=== PATIENT | male | born 1995 | race Caucasian/White ===

== ENCOUNTER 2019-06-10 09:12 | Emergency (ER) | payer MEDICAID ==
[2019-06-10 09:27] VITALS: BP 128/77
[2019-06-10] MEDS ORDERED: TETANUS/DIPHTHERIA/PERTUSSIS 0.5 ML SYRINGE IM ONE (09:53)
[2019-06-10] MEDS ORDERED: LIDOCAINE 1%-EPI 1:100000 20 ML MDV SUBQ STA (09:53)
--- NOTE | 2019-06-10 09:58 | ED Physician Documentation ---
PD HPI ANIMAL BITE - Stated complaint Stated Complaint: R HAND DOG BITE - Chief complaint Chief Complaint: Wound - Additional information Additional information: This is a 23-year-old zfrgy-lzie-mwttebex male who presents with a dog bite to h is right hand. He is home for the holidays and he brought his dog and his dog began fighting with his mother's dog, he tried to break up the fight and had his hand bit in the process. He did not get injured anywhere else. The dogs are both domestic and up-to-date with shots. This happen just prior to arrival. He denies any weakness or numbness or tingling Review of Systems Skin: reports: Laceration (s) Musculoskeletal: reports: Extremity pain PD PAST MEDICAL HISTORY - Past Medical History Past Medical History: No - Present Medications Home Medications: Ambulatory Orders Medication Instructions Recorded Confirmed Amox/Clav 875/125 [Augmentin] 1 each PO Q12H #14 tablet 06/10/19 - Allergies Allergies/Adverse Reactions: Allergies Allergy/AdvReac Type Severity Reaction Status Date / Time Sulfa (Sulfonamide Allergy Unknown Verified 06/10/19 09:27 Antibiotics) - Social History Does the pt smoke?: No Smoking Status: Never smoker PD ED PE NORMAL - General General: Alert and oriented X 3 - HEENT HEENT: Atraumatic - Cardiac Cardiac: Strong equal pulses - Respiratory Respiratory: No respiratory distress - Abdomen Abdomen: Non distended - Extremities Extremities: Other (Right hand has several abrasions and 3 lacerations, 1 over the dorsal inter-webspace, 1 over the dorsal mid hand, and one over the dorsal fourth MCP joint. All these extend to the subcutaneous tissue the laceration over the dorsal and webspace extends down to the level of the muscle with no obvious muscle disruption. There is no visible tendon, no foreign body, no tendon laceration. He is able to extend all of his fingers against resistance, is also able to flex against resistance without issue. Digits were tested at the MCP PIP and DIP joint and strength was intact. Sensation intact over all fingers, capillary refill is brisk.) - Neuro Neuro: Alert and oriented X 3 Results - Vitals Vitals: Vital Signs - 24 hr 06/10/19 09:24 Temperature 36.9 C Heart Rate 99 Respiratory 16 Rate Blood Pressure 128/77 O2 Saturation 100 Oxygen O2 Source Room air - Rads (name of study) XR hand Radiology: Other (No acute osseous abnormality, no radiopaque foreign body) Procedures - Laceration (location) hand Length in cm: 4 Wound type: Linear Anesthesia: Lidocaine 1% with epi Wound Preparation: Irrigated copiously NS Skin layer closure: Nylon, Interrupted, Size #-0 - enter number (5), Sutures - enter # (6) Other: Patient tolerated well, No complications, Neurovascular intact, Dressing applied, Tetanus booster given Complexity: Simple PD MEDICAL DECISION MAKING - ED course ED course: Patient presents with dog bite to his hand. He has several lacerations, but no signs of damage to the underlying tendons, vessels, or nerves. He is neurovascularly intact. He does have Tenderness just underneath the bite locations, an x-ray was obtained showing no fracture. The wounds were cleaned thoroughly with copious irrigation. I discussed with the patient the options of healing by secondary intent which may reduce the risk of infection, or primary closure which will Likely help speed healing, but may increase the risk of infection. Patient agrees with the plan for primary closure, which I agree with. The wounds were approximated well using sutures, and patient was started immediately on Augmentin, first dose given here. Wound care and return precautions were discussed with the patient, with an emphasis on signs of infection. Patient agrees with this plan and was discharged home Departure - Departure Disposition: 01 Home, Self Care Clinical Impression: Dog bite Qualifiers: Encounter type: initial encounter Qualified Code(s): W54.0XXA - Bitten by dog, initial encounter Condition: Good Instructions: ED Bite Animal General Follow-Up: Your,PCP [Other] (In 10 days for suture removal) Prescriptions: Amox/Clav 875/125 [Augmentin] 1 each PO Q12H #14 tablet Comments: Your stitches should be checked for removal in 10 days. You may run water over the wound and clean with mild soap and water, but do not scrub at the wounds. Keep an eye out for signs of infection such as increasing redness, pus draining from the wounds, redness streaking up the hand. If you see any of these sym ptoms return to the emergency department immediately. Take the antibiotic as prescribed, if your wounds are healing well with no signs of infection you may stop the medicine after 5 days. Discharge Date/Time: 06/10/19 11:37
--- NOTE | 2019-06-10 11:15 | XRAY Report ---
Reason: Dog bite to hand Procedure Date: 06/10/2019 Accession Number: [id number] / [id number] Procedure: XR - Hand 3 View RT CPT Code: Final Report FULL RESULT: EXAM: RIGHT HAND RADIOGRAPHY EXAM DATE: 06/10/2019 10:51 AM. CLINICAL HISTORY: Dog bite to hand. COMPARISON: None. TECHNIQUE: 3 views. FINDINGS: Bones: Normal. No fractures or bone lesions. Joints: Normal. No subluxations. Soft Tissues: Normal. No soft tissue swelling. IMPRESSION: Normal hand radiography. RADIA
[2019-06-10] MEDS ORDERED: AMOX/CLAV 875 MG/125 MG TABLET PO STA ×2 (11:19)
== END 2019-06-10 11:37 | disposition home or self-care (01) ==
LOC: ED 09:12
DX: S61.451A Open bite of right hand, initial encounter (principal); W54.0XXA Bitten by dog, initial encounter; Y93.K9 Activity, other involving animal care
CPT/HCPCS: 12002; 73130; 90471; 90715; 99283; A9270

== ENCOUNTER 2020-02-21 10:49 | Outpatient (CLI) | payer MEDICAID | END 2020-02-21 10:50 | disposition critical access hospital (66) | LOC: EMS 10:49 | PROVIDERS: ATTEND Surgery | DX: R56.9 Unspecified convulsions (principal) | CPT/HCPCS: A0425; A0427; A0999 ==

== ENCOUNTER 2020-02-21 11:01 | Observation (INO) | payer MEDICAID ==
[2020-02-21] MEDS ORDERED: SODIUM CHLORIDE 0.9% 1,000 ML IV STA (11:05)
--- NOTE | 2020-02-21 11:48 | CT Report ---
PROCEDURE: HEAD WO INDICATIONS: new-onset sz TECHNIQUE: Noncontrast 4.5 mm thick angled axial sections acquired from the foramen magnum to the vertex. For r adiation dose reduction, the following was used: automated exposure control, adjustment of mA and/or kV according to patient size. COMPARISON: None. FINDINGS: Image quality: On repeat imaging, the images are diagnostic. There is streak artifact from the patien t's metallic lobe plugs. CSF spaces: Basal cisterns are patent. No extra-axial fluid collections. Ventricles are normal in size and shape. Brain: No midline shift. No intracranial masses or hemorrhage. Norman-white matter interface is norm al. Skull and face: Calvarium and visualized facial bones are intact, without suspicious lesions. Sinuses: Visualized sinuses and mastoids are clear. IMPRESSION: Limited intracranial study, without a cause of seizures identified. If it would be helpful for clinical management decision making, please consider a dedicated seizure p rotocol brain MRI (without and with contrast) for further evaluation (assuming that there is no contr aindication). Reviewed by: Piter Harding MD on 02/21/2020 10:47 AM JOHN PAUL Approved by: Piter Harding MD on 02/21/2020 10:47 AM JOHN PAUL Station ID: [id number]
[2020-02-21 12:35] LABS: BASOPHILS # (AUTO) 0.1 10^3/uL (0.0-0.1); BASOPHILS % (AUTO) 0.4 %; EOSINOPHILS % (AUTO) 0.3 %; HGB - HEMOGLOBIN 15.4 g/dL (14.0-18.0); LYMPHOCYTES # (AUTO) 1.3 10^3/uL (1.5-3.5); LYMPHOCYTES % (AUTO) 9.5 %; MEAN CORPUSCULAR HEMOGLOBIN 28.5 pg (27.0-31.0); MEAN CORPUSCULAR VOLUME 88.9 fL (80.0-94.0); MONOCYTES % (AUTO) 7.1 %; NEUTROPHILS # (AUTO) 11.1 10^3/uL (1.5-6.6); NEUTROPHILS % (AUTO) 82.2 %; PLT - PLATELET COUNT 164 10^3/uL (130-450); RED BLOOD COUNT 5.41 10^6/uL (4.70-6.10); RED CELL DISTRIBUTION WIDTH 12.3 % (12.0-15.0); WHITE BLOOD COUNT 13.5 x10^3/uL (4.8-10.8)
[2020-02-21 12:46] LABS: ALBUMIN 4.7 g/dL (3.2-5.5); ALBUMIN/GLOBULIN RATIO 1.6 (1.0-2.2); ALKALINE PHOSPHATASE 51 IU/L (42-121); ALT ALANINE AMINOTRANSFERASE 12 IU/L (10-60); AST ASPARTATE AMINOTRANSFERASE 17 IU/L (10-42); BILIRUBIN,TOTAL 0.7 mg/dL (0.2-1.0); BUN - BLOOD UREA NITROGEN 12 mg/dL (6-20); CALCIUM 8.6 mg/dL (8.5-10.3); CARBON DIOXIDE - CO2 29 mmol/L (21-32); CHLORIDE 102 mmol/L (101-111); CREATININE 0.9 mg/dL (0.6-1.2); GLUCOSE 121 mg/dL (70-100); LIPASE 120 U/L (22-51); SODIUM 138 mmol/L (135-145); TOTAL PROTEIN 7.7 g/dL (6.7-8.2)
[2020-02-21 13:13] LABS: MUDS CUTOFF CONCENTRATIONS CUTOFF CONC BELOW:
[2020-02-21 13:25] LABS: AMPHETAMINE SCREEN,URINE NEGATIVE (NEGATIVE); BENZODIAZEPINES SCREEN, URINE NEGATIVE (NEGATIVE); COCAINE SCREEN URINE NEGATIVE (NEGATIVE); METHADONE SCREEN, URINE NEGATIVE (NEGATIVE); METHAMPHETAMINES SCREEN, URINE NEGATIVE (NEGATIVE); OPIATE SCREEN, URINE NEGATIVE (NEGATIVE); OXYCODONE SCREEN, URINE NEGATIVE (NEGATIVE); PROPOXYPHENE SCREEN, URINE NEGATIVE (NEGATIVE); TRICYCLIC ANTIDEPRESSANT,URINE NEGATIVE (NEGATIVE)
[2020-02-21] MEDS ORDERED: LORazepam 2 MG/ML VIAL IVP STA (13:28)
[2020-02-21] MEDS ORDERED: levETIRAcetam INJ 500 MG in SODIUM CHLORIDE 0.9% 100ML 100 ML IV STA (15:31)
[2020-02-21] MEDS ORDERED: ONDANSETRON ODT 4 MG TABLET TL PRN (15:50)
[2020-02-21] MEDS ORDERED: SODIUM CHLORIDE FLUSH 0.9% 10 ML SYRINGE IVP PRN (15:50)
[2020-02-21] MEDS ORDERED: ONDANSETRON 4 MG/2 ML VIAL IVP PRN (15:50)
[2020-02-21] MEDS ORDERED: ACETAMINOPHEN 325 MG TABLET PO PRN (15:50)
[2020-02-21] MEDS ORDERED: LORazepam 2 MG/ML VIAL IVP PRN (15:52)
--- NOTE | 2020-02-21 15:57 | ED Physician Documentation ---
History of Present Illness - Stated complaint Stated Complaint: SZ - Chief complaint Chief Complaint: Neuro - History obtained from History obtained from: Family, EMS - Additonal information Additional information: Patient is brought to the emergency department by EMS for chief complaint of new onset seizure. The patient had been standing and walking at home, when mother states that he suddenly seemed to "go into a daze". He stared off and then his face twisted and he began to shake. The family caught him before he fell to the floor. It is unclear exactly how long the seizure activity lasted, but EMS was called. The patient was then very somnolent afterward and has been confused in route, though reasonably cooperative. The patient initially is unable to offer any information. Per EMS, he has a distant history of IV drug abuse, but mom states is been about a year and a half since he last used. He does use marijuana but does not drink any alcohol that mom knows of. Patient has no h istory of seizure disorder. No recent head injuries that she knows of. Patient has not been sick with anything but has been under some stress and sleep deprivation from a new job. Mother does note that the patient's father did have a seizure disorder, but this was after significant head injury. Patient is otherwise healthy. Review of Systems Ten Systems: 10 systems reviewed and negative Constitutional: reports: Reviewed and negative Eyes: reports: Reviewed and negative Ears: reports: Reviewed and negative Nose: reports: Reviewed and negative Throat: reports: Reviewed and negative Cardiac: reports: Reviewed and negative Respiratory: reports: Reviewed and negative GI: reports: Reviewed and negative : reports: Reviewed and negative Skin: reports: Reviewed and negative Musculoskeletal: reports: Reviewed and negative Neurologic: reports: Seizure Psychiatric: reports: Reviewed and negative Endocrine: reports: Reviewed and negative Immunocompromised: reports: Reviewed and negative PD PAST MEDICAL HISTORY - Present Medications Home Medications: Ambulatory Orders Medication Instructions Recorded Confirmed Amox/Clav 875/125 [Augmentin] 1 each PO Q12H #14 tablet 06/10/19 - Allergies Allergies/Adverse Reactions: Allergies Allergy/AdvReac Type Severity Reaction Status Date / Time Sulfa (Sulfonamide Allergy Unknown Verified 02/21/20 16:09 Antibiotics) - Social History Does the pt smoke?: No Smoking Status: Never smoker PD ED PE NORMAL - Vitals Vital signs reviewed: Yes - General General: Other (Patient has arousable but unable to answer questions. He is in no obvious distress, though he is somewhat agitated) - HEENT HEENT: Atraumatic, PERRL, EOMI, Moist mucous membranes - Neck Neck: Supple, no meningeal sign - Cardiac Cardiac: RRR, No murmur, Strong equal pulses - Respiratory Respiratory: No respiratory distress, Clear bilaterally - Abdomen Abdomen: Soft, Non tender, Non distended - Back Back: No CVA TTP - Derm Derm: Normal color, No rash, Other (Warm, slight diaphoresis.) - Extremities Extremities: No deformity, No edema, No calf tenderness / cord - Neuro Neuro: Other (Patient moves all 4 extremities. He has Grossly intact cranial nerves and grossly intact sensation. He is awake and somewhat responsive but not mentally clear and is mildly agitated.) - Psych Psych: Normal mood, Normal affect Results - Vitals Vitals: Vital Signs - 24 hr 02/21/20 02/21/20 02/21/20 11:15 12:05 13:00 Temperature 37.3 C Heart Rate 84 69 79 Respiratory 20 14 14 Rate Blood Pressure 115/55 L 124/63 118/85 H O2 Saturation 97 100 100 02/21/20 02/21/20 02/21/20 13:30 14:00 14:30 Temperature Heart Rate 90 92 87 Respiratory 24 15 15 Rate Blood Pressure 122/51 L 118/52 L 106/40 L O2 Saturation 99 99 94 02/21/20 02/21/20 15:00 15:30 Temperature Heart Rate 89 83 Respiratory 12 14 Rate Blood Pressure 114/63 117/58 L O2 Saturation 97 96 Oxygen O2 Source Nasal cannula - Labs Labs: Laboratory Tests 02/21/20 02/21/20 02/21/20 11:40 11:40 12:45 WBC 13.5 H RBC 5.41 Hgb 15.4 Hct 48.1 MCV 88.9 MCH 28.5 MCHC 32.0 RDW 12.3 Plt Count 164 MPV 11.0 Neut # (Auto) 11.1 H Lymph # (Auto) 1.3 L Marin # (Auto) 1.0 Eos # (Auto) 0.0 Baso # (Auto) 0.1 Absolute Nucleated RBC 0.00 Nucleated RBC % 0.0 Sodium 138 Potassium 4.2 Chloride 102 Carbon Dioxide 29 Anion Gap 7.0 BUN 12 Creatinine 0.9 Estimated GFR (MDRD) 104 Glucose 121 H Calcium 8.6 Total Bilirubin 0.7 AST 17 ALT 12 Alkaline Phosphatase 51 Total Protein 7.7 Albumin 4.7 Globulin 3.0 Albumin/Globulin Ratio 1.6 Lipase 120 H Urine Opiates Screen NEGATIVE Ur Oxycodone Screen NEGATIVE Urine Methadone Screen NEGATIVE Ur Propoxyphene Screen NEGATIVE Ur Barbiturates Screen NEGATIVE Ur Tricyclics Screen NEGATIVE Ur Phencyclidine Scrn NEGATIVE Ur Amphetamine Screen NEGATIVE U Methamphetamines Scrn NEGATIVE U Benzodiazepines Scrn NEGATIVE Urine Cocaine Screen NEGATIVE U Cannabinoids Screen POSITIVE H Ethyl Alcohol < 5.0 - Rads (name of study) CT head Radiology: Final report received, EMP read indepedently, See rad report (neg) PD MEDICAL DECISION MAKING - ED course Complexity details: reviewed old records, reviewed results, re-evaluated patient, considered differential, d/w patient (Patient was worked up with labs, EKG) ED course: The patient was worked up with labs, urine drug screen, and head CT, all of which were unremarkable with the exception of positive marijuana on the drug screen. Patient's alcohol level was negative. The patient actually started to wake up and became coherent, and I thought that he may be able to go home. However, the patient ended up seizing again in the emergency department with a grand mall seizure that lasted about 1 minute. He was given a milligram of Ativan for this. At this point I spoke with Dr. Bowles, who was the neurologist on-call over at [facility]. He recommended starting the patient on Keppra until he can be worked up with MRI and EEG. The patient should have those test within roughly the next week, if at all possible. He recommended observation if the patient was not back to nearly mental baseline in an hour, or if the patient had a third seizure, at which time transfer should be considered. He did recommend that the patient try to find a way to get better sleep and has requested that the patient follow-up with them in the next 1 to 2 weeks at the [facility] neurology clinic. I spoke with Dr. Culp here at our hospital, after finding the pt still significantly post-ictal over an hour later, and he did agree to admit the patient to his service. Departure - Departure Disposition: ED Place in Observation Clinical Impression: New onset seizure, Postictal state Condition: Serious Discharge Date/Time: 02/21/20 16:29
--- NOTE | 2020-02-21 15:57 | HISTORY & PHYSICAL EXAMINATION ---
Chief Complaint - Chief Complaint Chief Complaint: New seizure History of Present Illness - Admitted From Admitted From:: Home - History Obtained From Records Reviewed: Yes History obtained from: Patient, ER Physician, EMR Exam Limitations: History limited from patient due to postictal state/lethargic from Ativan. 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 Most of the history is obtained from the ER physician as history is only from the patient due to his postictal state. The patient reportedly had what appears to be a grand mal seizure at home today. He does not recall this but he does know he is here at the hospital although he is not sure why. Reports no prior history of seizures. He reports no medication use. He admits to daily marijuana use with last use being this morning. He reports no change in the marijuana he normally uses. He denies any alcohol use. He reports a past history of IV heroin use although he has not used for quite a few years now. He reports no family history of seizures although his mother told the ER provider that his father had seizures after traumatic brain injury. While here in the emergency department, the patient had another witnessed grand mal seizure. He was given lorazepam IV and neurology was contacted recommend starting the patient on Keppra given he has had 2 seizures now. The patient underwent a CT of the head which was unremarkable. His labs were significant for a urine toxicology which was positive for marijuana. History - Past Medical History Cardiovascular: reports: None Respiratory: reports: None Neuro: reports: None Endocrine/Autoimmune: reports: None MRSA Hx?: No - Family & Social History Family History Comment/Other: He reports no family history to his knowledge. His Maternal grandfather had a history of seizures after traumatic brain injury. Living arrangement: At home Living Situation: With family Social History Notes: He reports he lives at home with his mother. He has been using marijuana daily for the past few years. He works in construction. Denies any alcohol use. He has a past history of IV heroin use but has not used in a few years. Meds/Allgy - Home Medications Home Medications: Ambulatory Orders Medication Instructions Recorded Confirmed Amox/Clav 875/125 [Augmentin] 1 each PO Q12H #14 tablet 12/25/19 - Allergies Allergies/Adverse Reactions: Allergies Allergy/AdvReac Type Severity Reaction Status Date / Time Sulfa (Sulfonamide Allergy Unknown Verified 02/21/20 16:09 Antibiotics) Review of Systems - Constitutional Constitutional: reports: Fatigue - Cardiovascular Cariovascular: denies: Chest pain - Respiratory Respiratory: denies: SOB at rest, SOB with exertion - Neurological Neurological: reports: Headache, Seizures. denies: General weakness, Focal weakness, Dizziness, Numbness - All Other Systems All Other Systems: reports: Other (Review of systems is limited as the patient is postictal.) Prior Level of Functionality: He is independent with his ADLs. Exam - Vital Signs Reviewed Vital Signs: Yes Vital Signs: Vital Signs x48h Temp Pulse Resp BP Pulse Ox 02/21/20 14:30 87 15 106/40 L 94 02/21/20 14:00 92 15 118/52 L 99 02/21/20 13:30 90 24 122/51 L 99 02/21/20 13:00 79 14 118/85 H 100 02/21/20 12:05 69 14 124/63 100 02/21/20 11:15 37.3 C 84 20 115/55 L 97 - Physical Exam General Appearance: positive: Lethargic, Other (He is lethargic but will wake up when spoken to. He does fall asleep quickly.) Eyes Bilateral: positive: Normal inspection, Other (Pupils are dilated but reactive to light.) ENT: positive: ENT inspection nml Neck: positive: Nml inspection Respiratory: positive: No respiratory distress. negative: Wheezes, Rales Cardiovascular: positive: Regular rate & rhythm, No murmur. negative: Irregularly irregular, Tachycardia, Bradycardia, Systolic murmur Abdomen: positive: Non-tender, No distention. negative: Tenderness Skin: positive: Warm, Dry Extremities: positive: Full ROM, No pedal edema Neurologic/Psychiatric: positive: Motor nml, Other (He is oriented to self and location as well as year and month. No focal deficits on exam. He does have about 3 beats of clonus.). negative: Disoriented to person, Disoriented to place, Disoriented to time Conclusion/Plan - Problem List (1) New onset seizure Conclusion/Plan: Presents with a grand mal seizure at home and another seizure while here in the emergency department. CT of the head was unremarkable. Urine toxicology is positive for marijuana. Alcohol is negative and there is no reported alcohol use. He was given Ativan IV in the emergency department. Currently appears postictal with this may be lethargy secondary to the use of Ativan. He has been started on Keppra as recommended by neurology. We will place in observation for further monitoring. Continue Keppra 500 mg twice daily. Lorazepam IV as needed for seizures. Will obtain MRI of the brain in the morning. Seizure precautions. If no further seizures then we will discharge him tomorrow on Keppra with neurology follow-up for outpatient EEG. (2) Marijuana use Conclusion/Plan: His urine toxicology is positive for marijuana. This may potentially lower the seizure threshold. Will discuss with patient regarding the importance of marijuana cessation once he is more alert. - Lab Results Lab results reviewed: Yes Fish Bones: 02/21/20 11:40 02/21/20 11:40 - Diagnostic Imaging Results Diagnostic Imaging Results: positive: Final report reviewed Core Measures - Anticipated LOS I expect patient to be DC'd or transferred within 96 hours.: Yes - Issues Hospital Issues and Management Plan: 24-year-old male presents with new onset seizure at home. Had another witnessed seizure in the emergency department. Will place in observation for further monitoring and obtain MRI of the brain. We will start him on Keppra as recommended by neurology. - DVT/VTE - Prophylaxis VTE/DVT Device ordered at admit?: Yes VTE/DVT Prophylaxis med ordered at admit?: No
[2020-02-21] MEDS: SODIUM CHLORIDE FLUSH 0.9% 10 ML SYRINGE IVP SCH ×2 (16:31→23:30)
[2020-02-21] MEDS: levETIRAcetam 250 MG TABLET PO SCH (21:15)
[2020-02-22 05:39] LABS: BASOPHILS % (AUTO) 0.2 %; HGB - HEMOGLOBIN 14.8 g/dL (14.0-18.0); LYMPHOCYTES # (AUTO) 2.1 10^3/uL (1.5-3.5); LYMPHOCYTES % (AUTO) 15.8 %; MEAN CORPUSCULAR HEMOGLOBIN 28.6 pg (27.0-31.0); MEAN CORPUSCULAR VOLUME 86.7 fL (80.0-94.0); MEAN PLATELET VOLUME 10.9 fL (7.4-11.4); MONOCYTES # (AUTO) 1.2 10^3/uL (0.0-1.0); MONOCYTES % (AUTO) 8.6 %; NEUTROPHILS # (AUTO) 10.1 10^3/uL (1.5-6.6); NEUTROPHILS % (AUTO) 74.9 %; PLT - PLATELET COUNT 168 10^3/uL (130-450); RED BLOOD COUNT 5.17 10^6/uL (4.70-6.10); RED CELL DISTRIBUTION WIDTH 12.2 % (12.0-15.0); WHITE BLOOD COUNT 13.5 x10^3/uL (4.8-10.8)
[2020-02-22 05:57] LABS: CALCIUM 9.1 mg/dL (8.5-10.3); MAGNESIUM 2.2 mg/dL (1.7-2.8); PHOSPHORUS 3.7 mg/dL (2.5-4.6)
[2020-02-22 08:09] VITALS: BP 117/66
--- NOTE | 2020-02-22 08:40 | Discharge Plan ---
Discharge Plan Problem Reviewed?: Yes Disposition: Home, Self Care Condition: Stable Prescriptions: Ondansetron Odt [Zofran Odt] 4 mg TL Q6HR PRN #10 tablet PRN Reason: Nausea / Vomiting levETIRAcetam [Keppra] 500 mg PO BID #120 tablet Diet: Regular Activity Restrictions: Activity as Tolerated Shower Restrictions: No Driving Restrictions: Yes (No driving for at least 6 months or until you are seen by a neurologist.) Health Concerns: You were seen in the hospital because of seizures. The cause of the seizures is not clear. You do smoke marijuana which can lower the seizure threshold and make it easier to have a seizure. You underwent a CT scan of your head which was normal. Plan of Treatment: Please start taking Keppra 500 mg twice a day. This is to help prevent seizures. Please stop smoking marijuana as this can be making it easier for you to have a seizure. Please follow-up with neurology in the [facility]. Care Goals: Please return to the emergency department if you develop seizures. Assessment: The patient expressed understanding of the treatment plan. Additional Instructions or Follow Up instructions: The number for neurology at the [facility] is [phone] Bowles recommended follow-up in 1 to 2 weeks. It is also recommended you establish care with a primary care provider. No Smoking: If you smoke, Please STOP! Call for help.
[2020-02-22] MEDS: levETIRAcetam 250 MG TABLET PO SCH (09:07)
[2020-02-22] MEDS: SODIUM CHLORIDE FLUSH 0.9% 10 ML SYRINGE IVP SCH (09:08)
--- NOTE | 2020-02-22 10:14 | DISCHARGE SUMMARY ---
Discharge Summary Admit Date: 02/21/20 Discharge Date: 02/22/20 Discharging Provider: Anthony Culp Primary Care Provider: No PCP Code Status: Attempt Resuscitation Condition at Discharge: Stable Discharge Disposition: 01 Home, Self Care - DIAGNOSES Admission Diagnoses: New onset seizure Marijuana use Discharge Diagnoses with Status of Each Condition: New onset seizure - stable. Marijuana use - stable. 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 Most of the history is obtained from the ER physician as history is only from the patient due to his postictal state. The patient reportedly had what appears to be a grand mal seizure at home today. He does not recall this but he does know he is here at the hospital although he is not sure why. Reports no prior history of seizures. He reports no medication use. He admits to daily marijuana use with last use being this morning. He reports no change in the marijuana he normally uses. He denies any alcohol use. He reports a past history of IV heroin use although he has not used for quite a few years now. He reports no family history of seizures although his mother told the ER provider that his father had seizures after traumatic brain injury. While here in the emergency department, the patient had another witnessed grand mal seizure. He was given lorazepam IV and neurology was contacted recommend starting the patient on Keppra given he has had 2 seizures now. The patient underwent a CT of the head which was unremarkable. His labs were significant for a urine toxicology which was positive for marijuana. - HOSPITAL COURSE Hospital Course: He was admitted for observation given he had another seizure in the emergency department and was postictal. Plan was to obtain MRI of the brain but this is unfortunate and available today. He was continued on Keppra 500 mg twice daily. He has had no more seizures and he is stable for discharge. The etiology of his seizures is not clear. CT of the head was unremarkable. Urine tox was negative except for marijuana. Alcohol was negative. I counseled him on the importance of marijuana cessation as this could lower the seizure threshold. The patient was adamant he did not use any alcohol and denies any other drug use. I also counseled him on the fact that he cannot drive for likely at least 6 months and he will need to be seen by a neurologist in 1 to 2 weeks. I provided him with a number for the neurology [place] [facility] as they recommended follow-up in 1 to [address] Bowles spoke to the ER provider. - ALLERGIES Allergies/Adverse Reactions: Allergies Allergy/AdvReac Type Severity Reaction Status Date / Time Sulfa (Sulfonamide Allergy Unknown Verified 02/21/20 16:09 Antibiotics) - MEDICATIONS Home Medications: Ambulatory Orders Medication Instructions Recorded Confirmed Ondansetron Odt [Zofran Odt] 4 mg TL Q6HR PRN #10 tablet 02/22/20 levETIRAcetam [Keppra] 500 mg PO BID #120 tablet 02/22/20 - PHYSICAL EXAM AT DISCHARGE General Appearance: positive: No acute distress, Alert Eyes Bilateral: positive: Normal inspection, Conjunctivae nml ENT: positive: ENT inspection nml Neck: positive: Nml inspection Respiratory: positive: No respiratory distress. negative: Wheezes, Rales Cardiovascular: positive: Regular rate & rhythm. negative: Irregularly irregular, Tachycardia, Bradycardia, Systolic murmur Abdomen: positive: Non-tender, No distention, Tenderness. negative: Guarding, Rebound Skin: positive: No rash, Warm, Dry Extremities: positive: Full ROM, No pedal edema Neurologic/Psychiatric: positive: Oriented x3, Motor nml, Other (No clonus.). negative: Disoriented to person, Disoriented to place, Disoriented to time Physical Exam Other/Comments: Vital Signs - 24 hr 02/21/20 02/21/20 02/21/20 12:05 13:00 13:30 Temperature Heart Rate 69 79 90 Heart Rate [ Brachial] Respiratory 14 14 24 Rate Blood Pressure 124/63 118/85 H 122/51 L Blood Pressure [Right Brachial artery] O2 Saturation 100 100 99 02/21/20 02/21/20 02/21/20 14:00 14:30 15:00 Temperature Heart Rate 92 87 89 Heart Rate [ Brachial] Respiratory 15 15 12 Rate Blood Pressure 118/52 L 106/40 L 114/63 Blood Pressure [Right Brachial artery] O2 Saturation 99 94 97 02/21/20 02/21/20 02/21/20 15:30 16:27 16:37 Temperature 36.7 C Heart Rate 83 85 Heart Rate [ 70 Brachial] Respiratory 14 14 16 Rate Blood Pressure 117/58 L 120/77 Blood Pressure 122/74 [Right Brachial artery] O2 Saturation 96 100 100 02/21/20 02/21/20 02/22/20 20:23 23:43 05:00 Temperature 37.0 C 37 C 37.1 C Heart Rate Heart Rate [ 74 63 71 Brachial] Respiratory 16 20 18 Rate Blood Pressure Blood Pressure 119/67 118/62 114/64 [Right Brachial artery] O2 Saturation 98 100 99 02/22/20 02/22/20 05:57 08:06 Temperature 37.1 C 36.9 C Heart Rate 71 Heart Rate [ 69 Brachial] Respiratory 18 Rate Blood Pressure Blood Pressure 117/66 [Right Brachial artery] O2 Saturation 2 L 99 Oxygen O2 Source Nasal cannula - LABS Result Diagrams: 02/22/20 05:26 02/22/20 05:26 - FOLLOW UP Follow Up: He was asked to establish care with a primary care provider and to follow-up with neurology at the [facility] in 1 to 2 weeks - TIME SPENT Time Spent in Discharge (Minutes): 30
[2020-02-22 11:53] LABS: HEMOGLOBIN A1c% 5.5 % (4.27-6.07)
== END 2020-02-22 10:30 | disposition home or self-care (01) ==
LOC: EDUNIT# → ED 11:01 → MS2 15:50
PROVIDERS: ADMIT Internal Medicine; ATTEND Internal Medicine
DX: R56.9 Unspecified convulsions (principal); F11.11 Opioid abuse, in remission; R82.5 Elevated urine levels of drugs, medicaments and biological substances; Z72.89 Other problems related to lifestyle
CPT/HCPCS: 36415; 70450; 80048; 80053; 80306; 80320; 82550; 83036; 83605; 83690; 83735; 84100; 85025; 96361; 96365; 96375; 99285; A9270; G0378; J2060; Q0162

== ENCOUNTER 2020-05-17 19:23 | Outpatient (CLI) | payer MEDICAID | END 2020-05-17 19:24 | disposition critical access hospital (66) | LOC: EMS 19:23 | PROVIDERS: ATTEND Surgery | DX: R51.9 Headache, unspecified (principal); R11.0 Nausea; R41.0 Disorientation, unspecified | CPT/HCPCS: A0425; A0427; A0999 ==

== ENCOUNTER 2020-05-17 19:36 | Emergency (ER) | payer MEDICAID ==
--- NOTE | 2020-05-17 19:51 | ED Physician Documentation ---
PD HPI ALTERED MENTAL STATUS - Stated complaint Stated Complaint: SEIZURE - Chief complaint Chief Complaint: Neuro - History obtained from History obtained from: Patient, EMS - History of Present Illness Timing - onset: How many minutes ago (40), Today Timing - duration: Minutes (The patient's mother discovered him to be unresponsive though breathing. No signs of injury. He had had recent seizure 2 months ago and so suspected are another one. She called EMS and they found the patient awakening but confused and unsteady that improved over about 15 minutes. Still slightly.) Timing - details: Now resolved (mostly resolved though still somewhat confused about events earlier today and where he was at the moment.) Quality / character: Unresponsive (initially, but improved in 1-2 minutes, and then confused 10-15 minutes.) Associated symptoms: No: Fever, Stiff neck, Dyspnea, Cough, Focal weakness Contributing factors: No: Diabetic, Recent illness, Recent injury, Intoxicated, Substance abuse Basline status: Alert and oriented X 3, Ambulatory, Other (works supervisor general for construction) Similar symptoms before: Diagnosis (had witnessed seizure activity x 2 couple months ago and was in hospital overnight. He was referred to Neurology. He states he had appt with specialist and states he has not had EEG/MRI. He states he thought he was told to take seizure med (Keppra) as needed for seizures, and so has not been.) Recently seen: Not recently seen (seen in Neurology outpt, according to the patient, and was told likely epilepsy but would not be confirmed unless repeated episode/symptoms.) Review of Systems Constitutional: denies: Fever Nose: denies: Rhinorrhea / runny nose, Congestion Throat: denies: Sore throat Respiratory: denies: Cough GI: denies: Abdominal Pain, Vomiting, Diarrhea Neurologic: reports: Headache (mild general) PD PAST MEDICAL HISTORY - Past Medical History Cardiovascular: None Respiratory: None Neuro: None Endocrine/Autoimmune: None - Present Medications Home Medications: Ambulatory Orders Medication Instructions Recorded Confirmed Ondansetron Odt [Zofran Odt] 4 mg TL Q6HR PRN #10 tablet 02/22/20 levETIRAcetam [Keppra] 500 mg PO BID #120 tablet 02/22/20 - Allergies Allergies/Adverse Reactions: Allergies Allergy/AdvReac Type Severity Reaction Status Date / Time Sulfa (Sulfonamide Allergy Unknown Verified 02/21/20 16:09 Antibiotics) - Social History Does the pt smoke?: No Smoking Status: Current every day smoker PD ED PE NORMAL - Vitals Vital signs reviewed: Yes - General General: Alert and oriented X 3, No acute distress, Well developed/nourished - HEENT HEENT: Atraumatic, PERRL, EOMI (no nystagmus), Moist mucous membranes, Pharynx benign, Other (no tongue nor lip lesions.) - Neck Neck: Supple, no meningeal sign, No bony TTP, No adenopathy - Cardiac Cardiac: RRR, No murmur - Respiratory Respiratory: No respiratory distress, Clear bilaterally - Abdomen Abdomen: Soft, Non tender - Derm Derm: Normal color, Warm and dry - Extremities Extremities: No tenderness to palpate, Normal ROM s pain - Neuro Neuro: Alert and oriented X 3 (mild only impairment in short term), iuss acoustic analyst 2-12 intact, No motor deficit, No sensory deficit, Normal speech Results - Vitals Vitals: Vital Signs - 24 hr 05/17/20 05/17/20 19:40 21:47 Temperature 37 C 37.3 C Heart Rate 89 95 Respiratory 18 16 Rate Blood Pressure 125/85 H 135/80 H O2 Saturation 98 98 Oxygen O2 Source Room air - Labs Labs: Laboratory Tests 05/17/20 05/17/20 05/17/20 20:10 20:36 20:36 WBC 15.2 H RBC 5.38 Hgb 15.9 Hct 46.9 MCV 87.2 MCH 29.6 MCHC 33.9 RDW 12.5 Plt Count 172 MPV 10.8 Neut # (Auto) 13.2 H Lymph # (Auto) 0.9 L Doddridge # (Auto) 1.0 Eos # (Auto) 0.0 Baso # (Auto) 0.1 Absolute Nucleated RBC 0.00 Nucleated RBC % 0.0 Sodium 138 Potassium 4.0 Chloride 95 L Carbon Dioxide 29 Anion Gap 14.0 H BUN 18 Creatinine 1.1 Estimated GFR (MDRD) 82 L Glucose 127 H Calcium 10.0 Magnesium 2.4 Total Bilirubin 0.8 AST 22 ALT 18 Alkaline Phosphatase 60 Total Protein 8.4 H Albumin 4.9 Globulin 3.5 Albumin/Globulin Ratio 1.4 Prolactin Urine Opiates Screen NEGATIVE Ur Oxycodone Screen NEGATIVE Urine Methadone Screen NEGATIVE Ur Propoxyphene Screen NEGATIVE Ur Barbiturates Screen NEGATIVE Ur Tricyclics Screen NEGATIVE Ur Phencyclidine Scrn NEGATIVE Ur Amphetamine Screen NEGATIVE U Methamphetamines Scrn NEGATIVE U Benzodiazepines Scrn NEGATIVE Urine Cocaine Screen NEGATIVE U Cannabinoids Screen POSITIVE H Ethyl Alcohol < 5.0 05/17/20 20:36 WBC RBC Hgb Hct MCV MCH MCHC RDW Plt Count MPV Neut # (Auto) Lymph # (Auto) Dod[place]idge # (Auto) Eos # (Auto) Baso # (Auto) Absolute Nucleated RBC Nucleated RBC % Sodium Potassium Chloride Carbon Dioxide Anion Gap BUN Creatinine Estimated GFR (MDRD) Glucose Calcium Magnesium Total Bilirubin AST ALT Alkaline Phosphatase Total Protein Albumin Globulin Albumin/Globulin Ratio Prolactin 8.25 Urine Opiates Screen Ur Oxycodone Screen Urine Methadone Screen Ur Propoxyphene Screen Ur Barbiturates Screen Ur Tricyclics Screen Ur Phencyclidine Scrn Ur Amphetamine Screen U Methamphetamines Scrn U Benzodiazepines Scrn Urine Cocaine Screen U Cannabinoids Screen Ethyl Alcohol PD MEDICAL DECISION MAKING - ED course Complexity details: reviewed old records, reviewed results, considered differential (no witnessed seizure activity nor physical findings to indicate that. Consider syncope or substance effect, however, he did have some time needed for improvement of thought process/confused and did have recent witnesses seizures in Feb. So presume current episode was recurrent seizure. ), d/w patient Departure - Departure Disposition: 01 Home, Self Care Clinical Impression: Unresponsive episode, Seizure Condition: Stable Record reviewed to determine appropriate education?: Yes Instructions: ED Seizure Recurrent Follow-Up: [facility] [Provider Group] Comments: At this point I would strongly recommend that you take the previously prescribed antiseizure medicines regularly twice daily. Follow-up with primary care and also call the neurology office and update on having had another likely seizure episode for any further recommendations. Discharge Date/Time: 05/17/20 22:00
[2020-05-17 20:21] LABS: MUDS CUTOFF CONCENTRATIONS CUTOFF CONC BELOW:
[2020-05-17] MEDS ORDERED: SODIUM CHLORIDE 0.9% 1,000 ML IV STA (20:22)
[2020-05-17] MEDS ORDERED: levETIRAcetam INJ 500 MG in SODIUM CHLORIDE 0.9% 100ML 100 ML IV STA (20:22)
[2020-05-17 20:34] LABS: AMPHETAMINE SCREEN,URINE NEGATIVE (NEGATIVE); BENZODIAZEPINES SCREEN, URINE NEGATIVE (NEGATIVE); COCAINE SCREEN URINE NEGATIVE (NEGATIVE); METHADONE SCREEN, URINE NEGATIVE (NEGATIVE); METHAMPHETAMINES SCREEN, URINE NEGATIVE (NEGATIVE); OPIATE SCREEN, URINE NEGATIVE (NEGATIVE); OXYCODONE SCREEN, URINE NEGATIVE (NEGATIVE); PROPOXYPHENE SCREEN, URINE NEGATIVE (NEGATIVE); TRICYCLIC ANTIDEPRESSANT,URINE NEGATIVE (NEGATIVE)
[2020-05-17 20:48] LABS: BASOPHILS # (AUTO) 0.1 10^3/uL (0.0-0.1); BASOPHILS % (AUTO) 0.3 %; HGB - HEMOGLOBIN 15.9 g/dL (14.0-18.0); LYMPHOCYTES # (AUTO) 0.9 10^3/uL (1.5-3.5); LYMPHOCYTES % (AUTO) 5.6 %; MEAN CORPUSCULAR HEMOGLOBIN 29.6 pg (27.0-31.0); MEAN CORPUSCULAR HGB CONC 33.9 g/dL (32.0-36.0); MEAN CORPUSCULAR VOLUME 87.2 fL (80.0-94.0); MEAN PLATELET VOLUME 10.8 fL (7.4-11.4); MONOCYTES % (AUTO) 6.4 %; NEUTROPHILS # (AUTO) 13.2 10^3/uL (1.5-6.6); PLT - PLATELET COUNT 172 10^3/uL (130-450); RED BLOOD COUNT 5.38 10^6/uL (4.70-6.10); RED CELL DISTRIBUTION WIDTH 12.5 % (12.0-15.0); WHITE BLOOD COUNT 15.2 x10^3/uL (4.8-10.8)
[2020-05-17 20:55] LABS: ALBUMIN 4.9 g/dL (3.2-5.5); ALBUMIN/GLOBULIN RATIO 1.4 (1.0-2.2); ALKALINE PHOSPHATASE 60 IU/L (42-121); ALT ALANINE AMINOTRANSFERASE 18 IU/L (10-60); AST ASPARTATE AMINOTRANSFERASE 22 IU/L (10-42); BILIRUBIN,TOTAL 0.8 mg/dL (0.2-1.0); BUN - BLOOD UREA NITROGEN 18 mg/dL (6-20); CARBON DIOXIDE - CO2 29 mmol/L (21-32); CHLORIDE 95 mmol/L (101-111); CREATININE 1.1 mg/dL (0.6-1.2); GLUCOSE 127 mg/dL (70-100); MAGNESIUM 2.4 mg/dL (1.7-2.8); SODIUM 138 mmol/L (135-145); TOTAL PROTEIN 8.4 g/dL (6.7-8.2)
[2020-05-17 21:48] VITALS: BP 135/80
== END 2020-05-17 22:00 | disposition home or self-care (01) ==
LOC: EDUNIT# → ED 19:36
DX: R40.4 Transient alteration of awareness (principal); R56.9 Unspecified convulsions
CPT/HCPCS: 36415; 80053; 80306; 80320; 83735; 84146; 85025; 96365; 99283

== ENCOUNTER 2020-06-25 02:30 | Outpatient (CLI) | payer MEDICAID | END 2020-06-25 02:31 | disposition EMS.NT | LOC: EMS 02:30 | PROVIDERS: ATTEND Surgery | DX: R56.9 Unspecified convulsions (principal) ==

== ENCOUNTER 2021-09-19 09:19 | Outpatient (CLI) | payer MEDICAID ==
[2021-09-19 12:37] LABS: BASOPHILS % (AUTO) 0.5 %; EOSINOPHILS # (AUTO) 0.1 10^3/uL (0.0-0.7); EOSINOPHILS % (AUTO) 1.5 %; HCT - HEMATOCRIT 44.7 % (42.0-52.0); LYMPHOCYTES # (AUTO) 1.4 10^3/uL (1.5-3.5); LYMPHOCYTES % (AUTO) 25.8 %; MEAN CORPUSCULAR HEMOGLOBIN 29.4 pg (27.0-31.0); MEAN CORPUSCULAR HGB CONC 33.6 g/dL (32.0-36.0); MEAN CORPUSCULAR VOLUME 87.5 fL (80.0-94.0); MEAN PLATELET VOLUME 10.9 fL (7.4-11.4); MONOCYTES # (AUTO) 0.6 10^3/uL (0.0-1.0); MONOCYTES % (AUTO) 11.5 %; NEUTROPHILS # (AUTO) 3.3 10^3/uL (1.5-6.6); NEUTROPHILS % (AUTO) 60.3 %; PLT - PLATELET COUNT 199 10^3/uL (130-450); RED BLOOD COUNT 5.11 10^6/uL (4.70-6.10); RED CELL DISTRIBUTION WIDTH 12.2 % (12.0-15.0); WHITE BLOOD COUNT 5.5 x10^3/uL (4.8-10.8)
[2021-09-19 13:32] LABS: ALBUMIN 4.7 g/dL (3.2-5.5); ALBUMIN/GLOBULIN RATIO 1.4 (1.0-2.2); ALKALINE PHOSPHATASE 52 IU/L (42-121); ALT ALANINE AMINOTRANSFERASE 13 IU/L (10-60); AST ASPARTATE AMINOTRANSFERASE 15 IU/L (10-42); BILIRUBIN,TOTAL 0.5 mg/dL (0.2-1.0); BUN - BLOOD UREA NITROGEN 24 mg/dL (6-20); CALCIUM 9.2 mg/dL (8.5-10.3); CARBON DIOXIDE - CO2 29 mmol/L (21-32); CHLORIDE 101 mmol/L (101-111); CHOL/HDL RATIO 2.2 (<5.0); CHOLESTEROL 137 mg/dL; CREATININE 0.9 mg/dL (0.6-1.2); GFR - MDRD 103 (>89); GLUCOSE 101 mg/dL (70-100); HDL CHOLESTEROL 62 mg/dL; LDL CHOLESTEROL,CALCULATED 66 mg/dL; LDL/HDL RATIO 1.1 (<3.6); POTASSIUM 4.2 mmol/L (3.5-5.0); SODIUM 137 mmol/L (135-145); TRIGLYCERIDES 43 mg/dL; VLDL CHOLESTEROL 9 mg/dL
== END 2021-09-19 09:20 | disposition home or self-care (01) ==
LOC: LAB.N 09:19
PROVIDERS: ATTEND Nurse Practitioner
DX: R56.9 Unspecified convulsions (principal); Z13.220 Encounter for screening for lipoid disorders
CPT/HCPCS: 36415; 80053; 80061; 83721; 85025